=== PATIENT | male | born 1955 | race Two or more races ===

== ENCOUNTER 2025-07-15 15:24 | Emergency (ER) | payer MEDICARE, SELFPAY ==
[2025-07-15 15:38] VITALS: BP 132/75; PULSE 89; RESP 20; TEMP 36.6; O2SAT 98; BMI 26.1
--- NOTE | 2025-07-15 16:06 | XR_ITS ---
Examination: CT brain head without contrast. 2-D sagittal coronal reconstructions Date and time of exam: 07/15/2025 at 4:20 p.m. CTDI: vol (mGy): 53.5 DLP: (mGycm): 1050 CLINICAL HISTORY: Patient had an episode of altered mental status yesterday, dizziness. Headache. Technique: Multiple CT axial sections of the brain have been obtained, 5 mm slice thickness. Contrast has not been administered. 2-D sagittal, coronal reconstructions have been obtained Low dose protocols were performed. One or more of the following dose reduction techniques were used; automated exposure control, adjustment of the mA and/or KV according to patient size, use of iterative reconstruction technique. Findings: There is abnormal dilatation of the cortical sulci overlying the cerebral cortex over the parietal lobe convexities, and frontal lobe convexities, consistent with mildly prominent cortical atrophy in this 69-year-old patient. There is mild dilatation of the lateral and third ventricles which otherwise appear all right. This also relates to mildly prominent central atrophy. There is a tiny 4 mm calcification along the roof of the third ventricle, I have not seen this before, however it is of doubtful significance. There is there is calcification of the pineal gland and habenular commissure which are normal findings pituitary gland appears normal There is major chronic atrophy involving much of the anterolateral portion of the temporal lobe on the right side. This almost certainly relates to an old moderately prominent cerebral infarct. I do not see any findings to suggest a subacute or acute cerebral infarct anywhere. The fourth ventricle and cerebellum and brainstem appear all right. The visible paranasal sinuses and mastoid regions and middle ear cavities appear normal. IMPRESSION: 1. There are generalized changes noted throughout the cerebrum, further discussed above, indicating the presence of generalized cerebral atrophy which is slightly increased related to the patient's age. 2. There is a fairly large stone of very marked chronic cerebral atrophy involving the mid and anterior portions of the right temporal lobe is almost certainly relates to an old chronic cerebral infarct 3. No other abnormalities are identified
--- NOTE | 2025-07-15 16:06 | XR_ITS ---
Examination: CT cervical spine without contrast 2-D sagittal reconstructions 2-D coronal reconstructions 3-D reconstructions. Exam date and time: 07/15/2025 at 4:20 p.m. CTDI:vol (mGy) 14 point DLP: (mGycm) 332 CLINICAL HISTORY: Patient had an episode of altered mental status yesterday, patient had a traumatic fall off a ladder 1 month ago. Headaches for the last 2 days Technique: Multiple 2 mm axial sections of the cervical spine have been obtained. The coronal and sagittal reconstructions have been obtained. 3-D reconstructions have been obtained. Low dose protocols were performed. One or more of the following dose reduction techniques were used; automated exposure control, adjustment of the mA and/or KV according to patient size, use of iterative reconstruction technique. Findings: There are no traumatic fractures or dislocations anywhere throughout the cervical spine. The odontoid process is normal. There is degenerative narrowing of the joint between the odontoid process and the anterior mass of C1. There is major degenerative disc space narrowing noted at C4-5 and C5-6, and there is moderate disc space narrowing at all other levels throughout the cervical spine The significant DJD at C5-6 is associated with mild reversal spondylolisthesis. There is significant DJD and joint space narrowing and fusion involving the posterior lateral facet joint at all levels from C3 down to C6 on the right side, with significant facet joint DJD throughout the remainder of the cervical spine and upper dorsal spine on the right side. On the left side major, extensive narrowing of the posterior facet joints is seen at all levels from C3 down to C7. Axial images suggest moderate narrowing of the left neuroforamen at C3-4 and of the right neuroforamen at C4-5. There is mild narrowing of the right and left neuroforamina at C5-6. There is a posterior osteophyte off the posteroinferior margin of C5 indenting the anterolateral aspect of the spinal canal on the left at this level. At C6-7 there is mild narrowing of the left neural foramen. IMPRESSION: 1. The study is entirely negative for traumatic abnormalities 2. There is major widespread degenerative joint disease and degenerative disc disease seen throughout the entire cervical spine, see above Impression: No acute cervical fracture.
--- NOTE | 2025-07-15 16:06 | PD.EDALCOH ---
ED Alcohol RME/HPI General Chief Complaint: Alcohol Stated Complaint: ETOH yesterday, SANCHEZ, ALMS that comes and goes Time Seen by Provider: 07/15/25 16:06 Source: patient and family Arrival date/time: 07/15/25 15:24 Mode of arrival: ambulatory Limitations: no limitations RME / HPI MD complaint: alcohol intoxication Chronic alcohol use: Yes Recent trauma: Yes (Patient fell off a ladder approximately 1-1/2 weeks ago onto cement hurting) Associated symptoms: denies other symptoms Treatments prior to arrival: none Related Data Home Medications ?Medication ?Instructions ?Recorded ?Confirmed No Known Home Medications 10/06/22 11/24/22 Allergies Allergy/AdvReac Type Severity Reaction Status Date / Time No Known Allergies Allergy Verified 07/15/25 15:34 Review of Systems Constitutional Constitutional: Reports system reviewed and no additional complaints, except as documented Eyes Eyes: Reports system reviewed and no additional complaints, except as documented, Denies dry eyes, Denies exophthalmos and Reports floaters Cardiovascular Cardiovascular: Denies chest pain with activity and Denies claudication Past Medical History Past Medical History Comments PMH COMMENT: EtOH abuse ED Exam Narrative Physical exam: There is a rather large and tender mass to the occiput. There is no erythema or ecchymoses present there is no apparent step-off present. There is no hemotympanums present. Posterior pharynx is pink and moist. The nose and the nasal septum are well within her normal limits and midline. General Limitations: Present no limitations General appearance: Present alert Head Head exam: Present normocephalic and other (There is a mass right of midline at the occiput. It is somewhat tender to palpation.) Eye Eye exam: Present normal appearance, PERRL and EOMI ENT ENT exam: Present normal exam, normal oropharynx, mucous membranes moist, TM's normal bilaterally and normal external ear exam Neck Neck exam: Present normal inspection and full ROM Chest Chest inspection: Present normal inspection and symmetric chest wall rise Rectal Exam Rectal exam: Present deferred Extremities Exam Extremities exam: Present normal inspection and full ROM Back Exam Back exam: Present normal inspection and full ROM Neurological Exam Neurological exam: Present alert and oriented X3 Psychiatric Psychiatric exam: Present normal affect and normal mood Skin Skin exam: Present warm, dry, intact and normal color Course Course Course Narrative: Patient will have a CT of the cervical spine, CT of the brain without contrast, an EtOH level, CBC, CMP, lipase, magnesium stat and a UA. Quality Measures none Orders Category Date Time Status CT cervical spine wo con Stat Exams 07/15/25 16:[address] head/brain wo con Stat Exams 07/15/25 16:06 Completed Alcohol, Blood Medical Stat Lab 07/15/25 16:36 Completed CBC Stat Lab 07/15/25 16:36 Completed Comprehensive Metabolic Panel Stat Lab 07/15/25 16:36 Completed Lipase Stat Lab 07/15/25 16:36 Completed Magnesium Stat Lab 07/15/25 16:36 Completed Urinalysis Stat Lab 07/15/25 17:41 Completed Ordered Vital Signs Vital signs: Vital Signs Temperature 97.9 F 07/15/25 15:38 Pulse Rate 89 07/15/25 15:38 Respiratory Rate 20 07/15/25 15:38 Blood Pressure 132/75 H 07/15/25 15:38 Pulse Oximetry (%) 98 07/15/25 15:38 Oxygen Delivery Method Room Air 07/15/25 15:38 Pulse ox is 98% room air Discharge Plan Plan Patient Disposition: HOME (Self Care) Discharge Disposition comment: Patient to be discharged in no apparent distress he will be discharged with a family member. Patient condition on transfer: Stable Prescriptions/Referrals Prescriptions/Med Rec: No Action No Known Home Medications Referrals: No Primary/Family,Physician [Primary Care Provider] - In 1 week Problem List Clinical Impression: Alcoholic intoxication, Contusion of head Impression comment: EtOH abuse Patient/Caregiver Discharge Instructions Discharge Activity: activity as tolerated Education Materials: Social Drinking vs Problem Drinking, ED Alcohol Intoxication Print Language: Yemeni Stand Alone Forms: Rahel Award Info., Patient Portal Info Letter PA/DIRECTOR OF MARKET ANALYSIS Supervising Physician PA/DIRECTOR OF MARKET ANALYSIS Supervising Physician: JESSICA Alcohol MDM Narrative MDM Narrative: Patient will be discharged with information with regards to the potential stone he abnormality found in his head. I will also inform the family that he has atrophy of the brain possibly due to age and alcohol abuse. Patient is discharged in no apparent distress needs to follow-up with primary care physician in a week. Patient should abstain from alcohol is much as possible. Patient data External records reviewed:: Other (specify) ([place]) Clinical information provided by:: patient and family Social determinants that could affect healthcare access:: housing Patient has the following chronic illnesses:: EtOH abuse How is presenting disease/condition affected by chronic disease/condition?: exacerbated by Evaluation data The following diagnostics were reviewed and interpreted by me:: lab results and radiology exam(s) (Atrophy of the brain) Lab and/or radiology exams considered but not ordered:: NA Interpretation Summary: NA Medications / Prescriptions Medications or Prescriptions considered but not ordered:: NA Medication administrations:: NONE Consultations Consultation(s) initiated? (list below): No Diagnosis Most likely diagnosis given after review of the tests above:: Contusion to the head and EtOH abuse Admission Indicated Admission indicated?: not indicated Admission Request Was there a request for admission?: No Disposition Plan Disposition Plan: Discharge Discharge Attestation Discharge Attestation: The patient and all family members were given an opportunity to ask questions and understood the discharge instructions. Discharge instructions specifically effects, indications for sooner follow up or return to the emergency department, and the expected course of current diagnosis. Patient condition: Stable
[2025-07-15 16:53] LABS: Basophils # (Auto) 0.1 Thou/mm3 (0.0-0.2); Basophils % (Auto) 1 % (0-2.5); Eosinophils # (Auto) 0.0 Thou/mm3 (0.0-0.5); Eosinophils % (Auto) 0 % (0-10); Hematocrit 41.1 % (41.0-53.0); Hemoglobin 13.7 g/dL (13.5-16.0); Immature Granulocytes Auto 0.02 Thou/mm3 (0.00-0.00); Lymphocytes # (Auto) 1.4 Thou/mm3 (1.0-4.8); Lymphocytes % (Auto) 19 % (10-50); Mean Corpuscular HGB Conc 33.3 g/dl (31.0-37.0); Mean Corpuscular Hemoglobin 31.7 pg (25.0-35.0); Mean Corpuscular Volume 95 fL (80-100); Monocytes # (Auto) 0.5 Thou/mm3 (0.0-0.8); Monocytes % (Auto) 6 % (0-12); Neutrophils # (Auto) 5.2 Thou/mm3 (1.8-7.7); Neutrophils % (Auto) 73 % (37-80); Nucleated Red Blood Cell # 0.00 Thou/mm3 (0.00-0.00); Nucleated Red Blood Cell % 0 /100 WBC (0); Platelet Count 308 Thou/mm3 (140-440); RDW Standard Deviation 46.1 fL (35.1-43.9); Red Blood Count 4.32 Miln/mm3 (4.50-5.90); White Blood Count 7.2 Thou/mm3 (3.8-10.6)
[2025-07-15 17:13] LABS: Alanine Aminotransferase 32 U/L (10-49); Albumin, Serum 5.0 gm/dL (3.4-4.8); Albumin/Globulin Ratio 1.6 (1.2-2.2); Alcohol, Blood Medical 110.0 mg/dL (0-10.0); Alkaline Phosphatase 83 U/L (46-116); Anion Gap 13 (7-16); Aspartate Amino Transferase 31 U/L (0-34); BUN/Creatinine Ratio 19 Ratio (12-20); Bilirubin,Total 0.4 mg/dL (0.3-1.2); Blood Urea Nitrogen 15 mg/dL (9-23); Calcium 9.4 mg/dL (8.3-10.6); Calcium (Corrected) 9.4 mg/dL (8.5-10.1); Carbon Dioxide 26.0 mMol/L (20.0-31.0); Chloride 107 mMol/L (98-107); Creatinine (Component) 0.8 mg/dL (0.6-1.3); Estimated Creatinine Clearance 75.0 mL/min (>60); Globulin 3.1 gm/dL (2.3-3.5); Glucose 92 mg/dL (74-106); Lipase 46 U/L (12-53); Magnesium 1.9 mg/dL (1.6-2.6); Osmolality,Calculated 291 (275-295); Potassium 3.9 mMol/L (3.4-5.1); Sodium 146 mMol/L (136-145); Total Protein 8.1 gm/dL (5.7-8.2); eGFR > 60 See Note
[2025-07-15 18:04] LABS: Collection Type, Urine Clean Catch
[2025-07-15 18:08] LABS: Bilirubin,Urine Negative (Negative); Blood,Urine Negative (Negative); Clarity,Urine Clear (Clear/Hazy); Color,Urine Yellow (Lt Yel-Yel); Glucose, Urine Negative (Negative); Ketones,Urine Negative (Negative); Leukocyte Esterase,Urine Negative (Negative); Nitrite,Urine Negative (Negative); PH,Urine 6.0 (5.0-7.0); Protein,Urine Trace (Neg - Trace); RBC,Urine 3 /hpf (0-3); Specific Gravity,Urine 1.028 (1.001-1.035); Squamous Epithelial Cell,Urine < 1 /hpf (0-5); Urobilinogen,Urine Negative mg/dL (0.0-1.0); WBC,Urine 1 /hpf (0-5)
== END 2025-07-15 18:50 | disposition home or self-care (01) ==
PROVIDERS: Physician Assistant; Emergency Provider Emergency Medicine
DX: S00.93XA Contusion of unspecified part of head, initial encounter (principal); F10.20 Alcohol dependence, uncomplicated; Y90.5 Blood alcohol level of 100-119 mg/100 ml; W11.XXXA Fall on and from ladder, initial encounter
CPT/HCPCS: 36415; 70450; 72125; 80053; 80320; 81001; 83690; 83735; 85025; 99282; G0480